=== PATIENT | female | born 1945 | race Hispanic/Latino ===

== ENCOUNTER 2016-11-24 14:29 | Outpatient (CLI) | payer MEDICARE ==
--- NOTE | 2016-11-25 07:54 | XRay Report ---
Right knee 4 views: No previous studies available for comparison. History: Knee pain. Findings: There is total knee replacement noted. The metallic prosthesis appears to be in normal position with marked narrowing of the knee joint. There is severe osteopenia noted. There is also noted cortical erosions of the patella. Bony fragments are identified around the joint. Impression: Probably unstable joint. Probably inflammatory process or neurogenic process. Further evaluation with MRI scan may be recommended.
== END 2016-11-24 14:30 | disposition home or self-care (01) ==
LOC: SPVIMAG 14:29
PROVIDERS: ATTEND Orthopaedic Surgery Sports Medicine
DX: M85.861 Other specified disorders of bone density and structure, right lower leg (principal); Z96.651 Presence of right artificial knee joint